=== PATIENT | female | born 1970 | race Caucasian/White ===

== ENCOUNTER 2022-06-26 20:28 | Emergency (ER) | payer OTHER ==
[~2022-06-26] VITALS: Ht 144.8 cm; Wt 68.0 kg
[2022-06-26 20:35] VITALS: BP 118/76
--- NOTE | 2022-06-26 20:38 | NUR ---
TO LOBBY A/W BED AMBULATORY
--- NOTE | 2022-06-26 22:05 | NUR ---
TO BED #8 AMBULATORY
--- NOTE | 2022-06-26 22:12 | NUR ---
Patient resting in bed, A/Ox4, chest rise and fall symmetrical, no s/s of distress, patient on monitor.
--- NOTE | 2022-06-26 22:25 | NUR ---
Patient being evaluated by physician at bedside.
[2022-06-26 22:44] VITALS: BP 112/74
--- NOTE | 2022-06-26 22:44 | NUR ---
Patient discharged with v/s stable. Written and verbal after care instructions given and explained. Patient verbalized understanding. Ambulatory with steady gait. All questions addressed prior to discharge. Advised to follow up with PMD.
== END 2022-06-26 22:44 | disposition home or self-care (01) ==
LOC: MED 20:28
DX: I73.00 Raynaud's syndrome without gangrene (principal); E03.9 Hypothyroidism, unspecified; Z98.890 Other specified postprocedural states; Z88.1 Allergy status to other antibiotic agents
CPT/HCPCS: 99282